=== PATIENT | male | born 1950 | race Caucasian/White ===

== ENCOUNTER 2016-05-08 09:50 | Day surgery (SDC) | payer MEDICARE, MEDICAID ==
[~2016-05-08] VITALS: Ht 180.3 cm
--- NOTE | 2016-05-10 08:09 | OR ---
ADMIT: 05/08/2016 RM/LOC: [facility] MR#: [id number] [address] [address] [place] [address] Operative/Delivery Room Report SEX: M AGE: 65 : 1950 SURGERY DATE: 05/08/2016 SURGEON: Gisella Mendez MD STOCK SELECTOR: None. PREOPERATIVE DIAGNOSES: 1. Lumbar spondylosis. 2. Lumbago. POSTOPERATIVE DIAGNOSES: 1. Lumbar spondylosis. 2. Lumbago. PROCEDURE PERFORMED: Bilateral lumbar medial branch block at L3, L4, L5, and S1 levels. INDICATION FOR THE PROCEDURE: ANESTHESIA: Local without sedation. ESTIMATED BLOOD LOSS: Zero. COMPLICATIONS: None immediately evident. DESCRIPTION OF THE PROCEDURE: After the patient was seen in the preoperative area, vital signs were taken. Prior to the procedure, the risks, benefits, and alternative therapies were discussed at length. The patient's consent was obtained and updated. The patient was taken to the fluoroscopy suite and placed on the fluoroscopy table in a prone position. Pressure points were padded to comfort. Monitors were applied and a timeout performed. The lumbosacral area was prepped and draped sterilely using ChloraPrep. C-arm fluoroscopy was then brought in to identify the junction of the pedicular and transverse process. Then lidocaine 1% was applied; approximately 1 mL was used to anesthetize the skin and underlying subcutaneous tissue at bilateral L3, L4, L5 and S1 levels. At each level, a 3.5 inch 22-gauge spinal needle was used. The needle was then advanced to make contact with the superior articular facet at each level, and then needle was placed between the junction ADMIT: 05/08/2016 RM/LOC: [facility] MR#: [id number] [address] [facility] [address] [place] [id number] [place] [address] Operative/Delivery Room Report SEX: M AGE: 65 : 1950 of the superior articular facet and the transfer process. Then the patient received 0.5 mL of 0.25% Marcaine with approximately 40 mg of Depo-Medrol at each level. The patient had reproduction of typical pain at each level. Then we moved on to the left side; we did the same procedure. The patient tolerated the procedure well. The patient was brought to the PACU where he recovered nicely without any complication. PLAN: The patient was examined after 20 minutes and had 80% reduction of pain. Range of motion, mainly extension, went from 0 degrees of extension to 20 degrees of extension. Discharge instructions were given. Followup as scheduled. The patient was discharged with a otr van cdl truck driver. Gisella Mendez MD/ elvin JOB #: [id number] CC: Gisella Mendez MD, Attending Physician Gonzalo Carter MD, Family Physician
== END 2016-05-08 11:55 | disposition home or self-care (01) ==
LOC: SSS 09:50
DX: G89.4 Chronic pain syndrome (principal); M47.26 Other spondylosis with radiculopathy, lumbar region; G56.00 Carpal tunnel syndrome, unspecified upper limb; M54.12 Radiculopathy, cervical region; M47.812 Spondylosis without myelopathy or radiculopathy, cervical region; M50.320 Other cervical disc degeneration, mid-cervical region, unspecified level; M48.06 Spinal stenosis, lumbar region; M51.16 Intervertebral disc disorders with radiculopathy, lumbar region; G58.7 Mononeuritis multiplex; I10 Essential (primary) hypertension; M99.83 Other biomechanical lesions of lumbar region; E78.5 Hyperlipidemia, unspecified; M35.00 Sjogren syndrome, unspecified; E11.9 Type 2 diabetes mellitus without complications; Z79.899 Other long term (current) drug therapy; Z79.82 Long term (current) use of aspirin; Z98.890 Other specified postprocedural states; Z90.49 Acquired absence of other specified parts of digestive tract; Z80.9 Family history of malignant neoplasm, unspecified; Z87.891 Personal history of nicotine dependence

== ENCOUNTER 2016-05-29 10:16 | Day surgery (SDC) | payer MEDICARE, MEDICAID ==
[~2016-05-29] VITALS: Ht 180.3 cm
--- NOTE | 2016-05-31 07:43 | OR ---
ADMIT: 05/29/2016 RM/LOC: [facility] MR#: [id number] [address] [address] [address] [place] [address] Operative/Delivery Room Report SEX: M AGE: 65 : 1950 SURGERY DATE: 05/29/2016 SURGEON: Gisella Mendez MD CONTRACT ADMINISTRATION MANAGER: None. PREOPERATIVE DIAGNOSES: 1. Lumbar spondylosis. 2. Lumbago. POSTOPERATIVE DIAGNOSES: 1. Lumbar spondylosis. 2. Lumbago. PROCEDURE PERFORMED: Bilateral lumbar medial branch block at L3, L4, L5, and S1 levels. INDICATION FOR THE PROCEDURE: The patient is a pleasant gentleman with history of chronic low back pain secondary to above-mentioned diagnosis comes here for planned bilateral lumbar medial branch block. ANESTHESIA: Local without sedation. ESTIMATED BLOOD LOSS: Zero. COMPLICATIONS: None immediately evident. DESCRIPTION OF THE PROCEDURE: After the patient was seen in the preoperative area, vital signs were taken. Prior to the procedure, the risks, benefits, and alternative therapies were discussed at length. The patient's consent was obtained and updated. The patient was taken to the fluoroscopy suite and placed on the fluoroscopy table in a prone position. Pressure points were padded to comfort. Monitors were applied and a timeout performed. The lumbosacral area was prepped and draped sterilely using ChloraPrep. C-arm fluoroscopy was then brought in to identify the junction of the pedicular and transverse process. Then lidocaine 1% was applied; approximately 1 mL was used to anesthetize the skin and underlying subcutaneous tissue at bilateral L3, L4, L5 and S1 levels. At each level, a 3.5 inch 22-gauge spinal needle was used. The needle was then advanced to make contact with the superior articular facet at each level, and then needle was placed between the junction ADMIT: 05/29/2016 RM/LOC: [facility] MR#: [id number] [address] [address] [address] [place] [address] Operative/Delivery Room Report SEX: M AGE: 65 : 1950 of the superior articular facet and the transfer process. Then the patient received 0.5 mL of 0.25% Marcaine with approximately 40 mg of Depo-Medrol at each level. The patient had reproduction of his typical pain at each level. Then we moved on to the left side and repeated the same procedure. The patient tolerated the procedure well. The patient was brought to the PACU where he recovered nicely without any complication. PLAN: The patient was examined after 20 minutes and had 80% reduction of pain. Range of motion, mainly extension, went from 10 degrees to extension to 25 degrees of extension. Discharge instructions were given. Followup as scheduled. The patient was discharged with a funeral driver. Gisella Mendez MD/ elvin JOB #: [id number] CC: Gisella Mendez MD, Attending Physician Gonzalo Carter MD, Family Physician
== END 2016-05-29 11:40 | disposition home or self-care (01) ==
LOC: SSS 10:16
PROC: BR16YZZ Fluoroscopy of Lumbar Facet Joint(s) using Other Contrast (ICD-10-PCS; principal; 2016-05-29)
PROC: 3E0T33Z Introduction of Anti-inflammatory into Peripheral Nerves and Plexi, Percutaneous Approach (ICD-10-PCS; principal; 2016-05-29)
PROC: 3E0T3BZ Introduction of Anesthetic Agent into Peripheral Nerves and Plexi, Percutaneous Approach (ICD-10-PCS; principal; 2016-05-29)
DX: G89.29 Other chronic pain (principal); M47.816 Spondylosis without myelopathy or radiculopathy, lumbar region; M50.320 Other cervical disc degeneration, mid-cervical region, unspecified level; M48.06 Spinal stenosis, lumbar region; M54.12 Radiculopathy, cervical region; M51.16 Intervertebral disc disorders with radiculopathy, lumbar region; E11.9 Type 2 diabetes mellitus without complications; M99.83 Other biomechanical lesions of lumbar region; F41.9 Anxiety disorder, unspecified; E78.5 Hyperlipidemia, unspecified; F32.9 Major depressive disorder, single episode, unspecified; I10 Essential (primary) hypertension; Z90.49 Acquired absence of other specified parts of digestive tract; Z98.890 Other specified postprocedural states; Z87.891 Personal history of nicotine dependence

== ENCOUNTER 2016-06-20 06:28 | Day surgery (SDC) | payer MEDICARE, MEDICAID ==
[~2016-06-20] VITALS: Ht 180.3 cm
--- NOTE | 2016-06-21 08:26 | OR ---
ADMIT: 06/20/2016 RM/LOC: [facility] MR#: [id number] [address] [place] [id number] Operative/Delivery Room Report SEX: M AGE: 65 : 1950 SURGERY DATE: 06/20/2016 SURGEON: Gisella Mendez MD WASTE COLLECTION DRIVER: None. PREPROCEDURE DIAGNOSES: 1. Lumbar spondylosis. 2. Chronic low back pain. 3. Post-laminectomy syndrome. POSTPROCEDURE DIAGNOSES: 1. Lumbar spondylosis. 2. Chronic low back pain. 3. Post-laminectomy syndrome. PROCEDURE PERFORMED: Right L3, L4, L5, and S1 medial branch radiofrequency thermocoagulation. INDICATIONS FOR PROCEDURE: The patient is pleasant gentleman with history of chronic low back pain secondary to above mentioned diagnoses, comes here for planned right lumbar radiofrequency ablation. ANESTHESIA: Local without sedation. ESTIMATED BLOOD LOSS: Zero. COMPLICATIONS: None immediately evident. DESCRIPTION OF THE PROCEDURE: After the patient was seen in the preoperative area, vitals signs were taken. Prior to the procedure, the risks, benefits, and alternative therapies were discussed at length. Patient consent was obtained and updated. The patient was taken to the fluoroscopy suite and placed on the fluoroscopy table in the prone position. Pressure points were padded to comfort, monitors applied, and a timeout performed. ADMIT: 06/20/2016 RM/LOC: [facility] MR#: [id number] [address] [place] [address] Operative/Delivery Room Report SEX: M AGE: 65 : 1950 Fluoroscopy was brought in to identify the transverse process of the right- sided L3, L4, L5, and S1. To anesthetize the skin, a spinal cannula was placed near the junction of pedicle and transverse process. Once we obtained appropriate parameters for sensory motor testing, we proceeded with radiofrequency thermocoagulation at each level, which consisted of 80 degrees for 90 seconds. The patient tolerated the procedure well. The patient did not feel any stimulation below his knees. The patient was discharged to post anesthesia care without any immediate complications. PLAN: Discharge instructions were given, followup scheduled. The patient was discharged home with a lifter/driver. Gisella Mendez MD/ elvin JOB #: [id number] CC: Gisella Mendez MD, Attending Physician Gonzalo Carter MD, Family Physician
== END 2016-06-20 08:36 | disposition home or self-care (01) ==
LOC: SSS 06:28
PROC: BR16ZZZ Fluoroscopy of Lumbar Facet Joint(s) (ICD-10-PCS; principal; 2016-06-20)
PROC: 3E0T3TZ Introduction of Destructive Agent into Peripheral Nerves and Plexi, Percutaneous Approach (ICD-10-PCS; principal; 2016-06-20)
DX: G89.29 Other chronic pain (principal); M47.816 Spondylosis without myelopathy or radiculopathy, lumbar region; M96.1 Postlaminectomy syndrome, not elsewhere classified; M47.22 Other spondylosis with radiculopathy, cervical region; M48.06 Spinal stenosis, lumbar region; E11.42 Type 2 diabetes mellitus with diabetic polyneuropathy; I10 Essential (primary) hypertension; E78.5 Hyperlipidemia, unspecified; F32.9 Major depressive disorder, single episode, unspecified; M19.90 Unspecified osteoarthritis, unspecified site; F41.9 Anxiety disorder, unspecified; I25.10 Atherosclerotic heart disease of native coronary artery without angina pectoris; M35.00 Sjogren syndrome, unspecified; Z79.82 Long term (current) use of aspirin; Z79.899 Other long term (current) drug therapy; Z90.49 Acquired absence of other specified parts of digestive tract; Z98.890 Other specified postprocedural states

== ENCOUNTER 2016-07-04 06:52 | Day surgery (SDC) | payer MEDICARE, MEDICAID ==
[~2016-07-04] VITALS: Ht 180.3 cm
--- NOTE | 2016-07-05 08:06 | OR ---
ADMIT: 07/04/2016 RM/LOC: [facility] MR#: [id number] [address] [address] [address] [place], [place] [address] Operative/Delivery Room Report SEX: M AGE: 66 : 1950 SURGERY DATE: 07/04/2016 SURGEON: Gisella Mendez MD LEATHER DRESSER: None. PREPROCEDURE DIAGNOSES: 1. Lumbar spondylosis. 2. Lumbago. POSTPROCEDURE DIAGNOSES: 1. Lumbar spondylosis. 2. Lumbago. PROCEDURE PERFORMED: Left L3, L4, L5 and S1 radiofrequency thermocoagulation. INDICATIONS FOR PROCEDURE: The patient is a pleasant gentleman with history of chronic low back pain secondary to above-mentioned diagnoses comes here today for planned lumbar radiofrequency ablation. ANESTHESIA: Local without sedation. ESTIMATED BLOOD LOSS: Zero. COMPLICATIONS: None immediately evident. DESCRIPTION OF THE PROCEDURE: After the patient was seen in the preoperative area, vitals signs were taken. Prior to the procedure, the risks, benefits, and alternative therapies were discussed at length. Patient consent was obtained and updated. The patient was taken to the fluoroscopy suite and placed on the fluoroscopy table in the prone position. Pressure points were padded to comfort, monitors applied, and a timeout performed. ADMIT: 07/04/2016 RM/LOC: [facility] MR#: [id number] [address] [place] [address] [address] [place] [address] Operative/Delivery Room Report SEX: M AGE: 66 : 1950 Fluoroscopy was brought in to identify the transverse process of the left L3, L4, L5, and S1. To anesthetize the skin, a spinal cannula was placed near the junction of pedicle and transverse process. Once we obtained appropriate parameters for sensory motor testing, we proceeded with radiofrequency thermocoagulation at each level, which consisted of 80 degrees for 90 seconds. The patient tolerated the procedure well. The patient did not feel any stimulation below his knees. The patient was discharged to post anesthesia care without any immediate complications. PLAN: Discharge instructions were given, followup scheduled. The patient was discharged home with a dray driver. Gisella Mendez MD/ elvin JOB #: [id number] CC: Gisella Mendez MD, Attending Physician Gonzalo Carter MD, Family Physician
== END 2016-07-04 08:39 | disposition home or self-care (01) ==
LOC: SSS 06:52
PROC: 3E0T3TZ Introduction of Destructive Agent into Peripheral Nerves and Plexi, Percutaneous Approach (ICD-10-PCS; principal; 2016-07-04)
PROC: BR16YZZ Fluoroscopy of Lumbar Facet Joint(s) using Other Contrast (ICD-10-PCS; principal; 2016-07-04)
DX: G89.29 Other chronic pain (principal); M47.816 Spondylosis without myelopathy or radiculopathy, lumbar region; G56.00 Carpal tunnel syndrome, unspecified upper limb; M50.120 Mid-cervical disc disorder, unspecified level; M48.06 Spinal stenosis, lumbar region; G58.7 Mononeuritis multiplex; G62.9 Polyneuropathy, unspecified; E11.9 Type 2 diabetes mellitus without complications; F41.9 Anxiety disorder, unspecified; I10 Essential (primary) hypertension; E78.5 Hyperlipidemia, unspecified; F32.9 Major depressive disorder, single episode, unspecified; Z90.49 Acquired absence of other specified parts of digestive tract; Z98.890 Other specified postprocedural states; Z79.899 Other long term (current) drug therapy